=== PATIENT | female | born 1960 ===

== ENCOUNTER 2025-03-03 12:45 | Inpatient (IN) | payer OTHER ==
[~2025-03-03] VITALS: Ht 30.5 cm; Wt 44.0 kg
[2025-03-11] MEDS ORDERED: CEFTRIAXONE SODIUM 2,000 MG VIAL ONE ×2 (07:14→07:45)
[2025-03-11] MEDS ORDERED: LIDOCAINE HCL 1%/EPINEPHRINE 20ML VIAL IJ ONE (07:14)
[2025-03-11] MEDS ORDERED: METRONIDAZOLE/SODIUM CHLORIDE 500 MG/100 ML PIGGYBACK IV ONE ×2 (07:14→07:46)
[2025-03-11] MEDS ORDERED: BUPIVACAINE HCL/MPF 0.5% 30ML VIAL ONE (07:14)
[2025-03-11] MEDS ORDERED: MORPHINE SULFATE 4 MG/ML VIAL IV ONE ×4 (09:55→10:25)
[2025-03-11] MEDS ORDERED: MORPHINE SULFATE 4 MG/ML CARTRIDGE IV PRN (10:00)
[2025-03-11] MEDS ORDERED: OxyCODONE HCL 5 MG TABLET (ROXICODONE) PO PRN (10:00)
[2025-03-11] MEDS ORDERED: ONDANSETRON HCL 2 MG/ML VIAL IV PRN (10:00)
[2025-03-11] MEDS ORDERED: DEXTROSE 50 % IN WATER 0.5 G/ML VIAL IV PRN (10:00)
[2025-03-11] MEDS ORDERED: RINGERS SOLUTION,LACTATED 1,000 ML IV SCH (10:00)
[2025-03-11] MEDS ORDERED: hydrALAZINE HCL 20 MG VIAL ONE (10:41)
[2025-03-11] MEDS ORDERED: hydrALAZINE HCL 20 MG VIAL IV ONE (10:55)
[2025-03-11] MEDS ORDERED: ACETAMINOPHEN 500 MG GEL..CAP PO SCH (14:00)
[2025-03-11] MEDS ORDERED: ONDANSETRON HCL 2 MG/ML VIAL ONE (14:35)
[2025-03-11 15:17] LABS: BASO % 0.3 % (0.1-1.2); LYMPH # 1.07 (1.18-3.74); LYMPH % 6.2 % (19.3-53.1); MEAN CORPUSCULAR HEMOGLOBIN 27.5 pg (25.6-32.2); MONO # 0.82 (0.24-0.82); MONO % 4.7 % (4.7-12.5); NEUT # 15.37 (1.56-6.13); NEUT % 88.5 % (34.0-71.1); PLATELET COUNT 362 K/uL (163-369); RED BLOOD COUNT 4.73 M/uL (3.93-5.22); RED CELL DISTRIBUTION WIDTH 15.7 % (11.6-14.4)
[2025-03-11 15:30] LABS: ALBUMIN 4.2 gm/dL (3.4-5.0); CALCIUM 9.6 mg/dL (8.5-10.1); CREATININE SERUM 0.64 mg/dL (0.55-1.02); GFR 93.42; PHOSPHOROUS 2.6 mg/dL (2.5-4.9); POTASSIUM 3.58 mEq/L (3.5-5.1)
[2025-03-11 16:00] VITALS: BP 172/88; O2SAT 98
[2025-03-11 16:27] LABS: MAGNESIUM 1.3 mg/dL (1.8-2.4)
[2025-03-11] MEDS ORDERED: POLYETHYLENE GLYCOL 3350 17 GM BLIST.PACK PO SCH (17:00)
[2025-03-11] MEDS ORDERED: GABAPENTIN 300 MG CAPSULE PO SCH (17:00)
[2025-03-11] MEDS ORDERED: MAGNESIUM SULFATE IN WATER 50 ML IV NR (17:45)
[2025-03-11] MEDS ORDERED: FAMOTIDINE/PF 20 MG/2 ML VIAL IV PUSH SCH (21:00)
[2025-03-12 02:50] VITALS: BP 111/67; O2SAT 98
[2025-03-12 08:00] VITALS: BP 114/65; O2SAT 97
[2025-03-12 08:37] LABS: BASO % 0.4 % (0.1-1.2); EOS # 0.01 (0.04-0.54); EOS % 0.1 % (0.7-7.0); HEMATOCRIT 39.2 % (34.1-44.9); LYMPH # 2.02 (1.18-3.74); LYMPH % 19.3 % (19.3-53.1); MEAN CORPUSCULAR HEMOGLOBIN 27.3 pg (25.6-32.2); MONO # 1.25 (0.24-0.82); MONO % 11.9 % (4.7-12.5); NEUT # 7.13 (1.56-6.13); NEUT % 68.1 % (34.0-71.1); PLATELET COUNT 326 K/uL (163-369); RED BLOOD COUNT 4.76 M/uL (3.93-5.22); RED CELL DISTRIBUTION WIDTH 15.8 % (11.6-14.4)
[2025-03-12] MEDS ORDERED: MAGNESIUM SULFATE IN WATER 50 ML IV ONE (09:15)
[2025-03-12 09:22] LABS: ALBUMIN 3.7 gm/dL (3.4-5.0); CALCIUM 9.9 mg/dL (8.5-10.1); CREATININE SERUM 0.96 mg/dL (0.55-1.02); GFR 58.51; MAGNESIUM 2.4 mg/dL (1.8-2.4); PHOSPHOROUS 5.2 mg/dL (2.5-4.9); POTASSIUM 4.19 mEq/L (3.5-5.1)
[2025-03-12 16:00] VITALS: BP 120/63; O2SAT 98
[2025-03-12] MEDS ORDERED: ENOXAPARIN SODIUM 40 MG/0.4 ML SYRINGE SUBCUTANEO SCH (17:00)
[2025-03-13 01:15] VITALS: BP 129/74; O2SAT 100
[2025-03-13 08:00] VITALS: BP 120/78; O2SAT 98
[2025-03-13 08:18] LABS: BASO % 0.7 % (0.1-1.2); EOS # 0.01 (0.04-0.54); EOS % 0.1 % (0.7-7.0); HEMATOCRIT 36.6 % (34.1-44.9); HEMOGLOBIN 11.8 g/dL (11.2-15.7); LYMPH # 2.16 (1.18-3.74); LYMPH % 25.6 % (19.3-53.1); MEAN CORPUSCULAR HEMOGLOBIN 27.4 pg (25.6-32.2); MONO # 0.64 (0.24-0.82); MONO % 7.6 % (4.7-12.5); NEUT # 5.53 (1.56-6.13); NEUT % 65.6 % (34.0-71.1); PLATELET COUNT 282 K/uL (163-369); RED CELL DISTRIBUTION WIDTH 15.9 % (11.6-14.4)
[2025-03-13] MEDS ORDERED: ENOXAPARIN SODIUM 40 MG/0.4 ML SYRINGE SUBCUTANEO SCH (09:00)
[2025-03-13 09:08] LABS: CALCIUM 9.3 mg/dL (8.5-10.1); CREATININE SERUM 0.49 mg/dL (0.55-1.02); GFR 127.14; MAGNESIUM 1.6 mg/dL (1.8-2.4); PHOSPHOROUS 2.7 mg/dL (2.5-4.9); POTASSIUM 4.16 mEq/L (3.5-5.1)
[2025-03-13] MEDS ORDERED: MAGNESIUM SULFATE IN WATER 50 ML IV NR (09:50)
[2025-03-13 16:00] VITALS: BP 109/68; O2SAT 98
[2025-03-14 00:30] VITALS: BP 151/70; O2SAT 99
[2025-03-14 08:00] VITALS: BP 162/83; O2SAT 100
[2025-03-14] MEDS ORDERED: LACTOBACILLUS ACIDOPHILUS 1 CAP CAP PO SCH (09:00)
[2025-03-14 16:18] VITALS: BP 169/78; O2SAT 100
[2025-03-15 00:50] VITALS: BP 132/68; O2SAT 98
[2025-03-15 08:00] VITALS: BP 164/77; O2SAT 98
[2025-03-15 16:00] VITALS: BP 151/85; O2SAT 99
== END 2025-03-15 23:14 | disposition home or self-care (01) | DRG 330 ==
LOC: O/R 03-11 07:39 → SURH 03-11 07:39 → SURG 03-11 11:49 → SURH 03-11 11:50
PROVIDERS: Internal Medicine Geriatric Medicine; ADMIT Surgery; ATTEND Surgery
PROC: 0DBP4ZZ Excision of Rectum, Percutaneous Endoscopic Approach (ICD-10-PCS; 2025-03-11)
PROC: 0DJD8ZZ Inspection of Lower Intestinal Tract, Via Natural or Artificial Opening Endoscopic (ICD-10-PCS; 2025-03-11)
PROC: 0DTN4ZZ Resection of Sigmoid Colon, Percutaneous Endoscopic Approach (ICD-10-PCS; principal; 2025-03-11 10:30)
DX: K57.20 Diverticulitis of large intestine with perforation and abscess without bleeding (principal); K56.50 Intestinal adhesions [bands], unspecified as to partial versus complete obstruction; R10.32 Left lower quadrant pain; F17.200 Nicotine dependence, unspecified, uncomplicated